=== PATIENT | male | born 1970 | race Caucasian/White ===

== ENCOUNTER 2018-11-17 10:46 | Emergency (ER) | payer MEDICARE, OTHER ==
[~2018-11-17] VITALS: Ht 160 cm; Wt 65.8 kg
[2018-11-17 11:14] VITALS: Ht 160 cm; Wt 65.8 kg
[2018-11-17] MEDS ORDERED: SODIUM CHLORIDE 0.9% 1L BAG IV* STA (12:04)
[2018-11-17] MEDS ORDERED: ONDANSETRON 4 MG INJ IV STA (12:04)
[2018-11-17] MEDS ORDERED: morphine 4 MG/ML VIAL IV STA (12:04)
[2018-11-17] MEDS ORDERED: ACETAMINOPHEN 325 MG TAB PO STA (12:04)
[2018-11-17] MEDS ORDERED: ASPI-817 PO (12:12)
[2018-11-17] MEDS ORDERED: ACET325T33 PO (13:19)
[2018-11-17] MEDS ORDERED: IBUP-1542 PO (13:19)
--- NOTE | 2018-11-17 13:46 | ERD ---
ER Documentation Chief Complaint Chief Complaint c/o moderate to severe headache and numbness on legs x2 days HPI Patient is a 48-year-old male with coronary disease and hypertension who presents with headache. The patient said that he started with headache on Thursday which is worsening. He tried aspirin. He had some blurry vision and bilateral feet numbness. He had a fever in triage. He said the last time he felt like this he had "MRSA in the head". Upon review of old medical records this is the patient's first visit to the emergency department. The patient's primary doctor is Dr. Lawson Whitehead. ROS All systems reviewed and are negative except as per history of present illness. Medications Home Meds Active Scripts Ibuprofen* (Motrin*) 600 Mg Tab, 600 MG PO Q6H PRN for PAIN AND OR ELEVATED TEMP, #30 TAB Prov:SUSIE WHITE MD 11/17/18 Acetaminophen* (Tylenol*) 325 Mg Tablet, 2 TAB PO Q8 PRN for PAIN AND OR ELEVATED TEMP, #20 TAB Prov:SUSIE WHITE MD 11/17/18 Reported Medications Aspirin* (Aspirin* EC) 81 Mg Tablet.dr, 81 MG PO DAILY, TAB 11/17/18 Allergies Allergies: Coded Allergies: No Known Allergy (Unverified , 11/17/18) PMhx/Soc History of Surgery: Yes (BACK SX) Anesthesia Reaction: No Hx Neurological Disorder: No Hx Respiratory Disorders: No Hx Cardiac Disorders: Yes (TIA) Hx Psychiatric Problems: No Hx Miscellaneous Medical Probl: Yes Hx Alcohol Use: No Hx Substance Use: No Hx Tobacco Use: Yes Smoking Status: Current every day smoker FmHx Family History: No diabetes Physical Exam Vitals Vital Signs Date Temp Pulse Resp B/P (MAP) Pulse Ox O2 O2 Flow FiO2 Time Delivery Rate 11/17/18 98.6 60 17 130/3 (45) 99 Room Air 14:09 11/17/18 100.1 12:50 11/17/18 Nasal 2 12:31 Cannula 11/17/18 100.4 81 16 138/69 99 11:14 (92) Physical Exam Const: No acute distress Head: Atraumatic Eyes: Normal Conjunctiva ENT: Normal External Ears, Nose and Mouth. Neck: Full range of motion. No meningismus. Able to touch chin to his chest Resp: Clear to auscultation bilaterally Cardio: Regular rate and rhythm, no murmurs Abd: Soft, non tender, non distended. Normal bowel sounds Skin: No petechiae or rashes Back: No midline or flank tenderness Ext: No cyanosis, or edema Neur: Awake and alert, cranial nerves II through XII intact, strength is 5 out of 5 in all 4 tremors, no slurred speech Psych: Normal Mood and Affect Result Diagram: 11/17/18 1242 11/17/18 1242 Results 24 hrs Laboratory Tests Test 11/17/18 12:42 11/17/18 12:44 White Blood Count 5.0 10^3/ul Red Blood Count 4.85 10^6/ul Hemoglobin 15.0 g/dl Hematocrit 44.2 % Mean Corpuscular Volume 91.1 fl Mean Corpuscular Hemoglobin 30.9 pg Mean Corpuscular Hemoglobin Concent 33.9 g/dl Red Cell Distribution Width 12.7 % Platelet Count 370 10^3/UL Mean Platelet Volume 9.0 fl Immature Granulocytes % 0.400 % Neutrophils % 64.7 % Lymphocytes % 23.5 % Monocytes % 9.4 % Eosinophils % 1.0 % Basophils % 1.0 % Nucleated Red Blood Cells % 0.0 /100WBC Immature Granulocytes # 0.020 10^3/ul Neutrophils # 3.3 10^3/ul Lymphocytes # 1.2 10^3/ul Monocytes # 0.5 10^3/ul Eosinophils # 0.1 10^3/ul Basophils # 0.1 10^3/ul Nucleated Red Blood Cells # 0.0 10^3/ul Prothrombin Time 12.3 Sec Prothrombin Time Ratio 1.0 INR International Normalized Ratio 0.90 Activated Partial Thromboplast Time 25.9 Sec Urine Color COLORLESS Urine Clarity CLEAR Urine pH 7.0 Urine Specific [place] 1.004 Urine Ketones NEGATIVE mg/dL Urine Nitrite NEGATIVE mg/dL Urine Bilirubin NEGATIVE mg/dL Urine Urobilinogen NEGATIVE mg/dL Urine Leukocyte Esterase NEGATIVE [facility]/ul Urine Hemoglobin NEGATIVE mg/dL Urine Glucose NEGATIVE mg/dL Urine Total Protein NEGATIVE mg/dl Sodium Level 142 mmol/L Potassium Level 4.0 mmol/L Chloride Level 106 mmol/L Carbon Dioxide Level 30 mmol/L Anion Gap 6 Blood Urea Nitrogen 17 mg/dl Creatinine 0.85 mg/dl Est Glomerular Filtrat Rate mL/min > 60 mL/min Glucose Level 104 mg/dl Calcium Level 9.6 mg/dl Total Bilirubin 0.5 mg/dl Direct Bilirubin 0.00 mg/dl Indirect Bilirubin 0.5 mg/dl Aspartate Amino Transf (AST/SGOT) 30 IU/L Alanine Aminotransferase (ALT/SGPT) 37 IU/L Alkaline Phosphatase 52 IU/L Troponin I < 0.012 ng/ml Total Protein 7.4 g/dl Albumin 4.5 g/dl Globulin 2.90 g/dl Albumin/Globulin Ratio 1.55 POC Venous Lactate 1.1 mmol/L Current Medications Medications Dose Sig/Idris Start Time Status Last (Trade) Ordered Route PRN Stop Time Admin Dose Reason Admin Sodium 1,970 ml BOLUS OVER 2 11/17/18 DC 11/17/18 Chloride HOURS STAT 12:04 12:50 (NS) IV* 11/17/18 12:07 650 mg ONCE STAT 11/17/18 DC 11/17/18 Acetaminophen PO 12:04 12:50 (Tylenol 11/17/18 12:07 Tab) Morphine 4 mg ONCE STAT 11/17/18 DC 11/17/18 Sulfate IV 12:04 12:50 (morphine) 11/17/18 12:07 Ondansetron 4 mg ONCE STAT 11/17/18 DC 11/17/18 HCl (Zofran IV 12:04 12:50 Inj) 11/17/18 12:07 Procedures/MDM EKG read by me: Rate/Rhythm: Regular rate and rhythm at a rate of 74 Intervals: Normal Impression: No evidence of ischemia or arrhythmia CT brain negative per radiology. Chest x-ray negative per radiology. Smoking Cessation Therapy: Pt. was lectured for greater than 3 minutes on the health risks of continued smoking and the benefits of cessation. Patient is a 48-year-old male with coronary disease and hypertension who presents with fever. I believe he likely has a viral illness at this time. I doubt serious bacterial infection such as meningitis or brain abscess. I doubt sepsis. I believe outpatient management is appropriate but the patient will need close follow-up with his primary doctor within 24 to 48 hours. He can return sooner for any worsening symptoms. He was given copies of laboratory studies and imaging test prior to discharge. Departure Diagnosis: Primary Impression: URI (upper respiratory infection) URI type: unspecified URI Qualified Codes: J06.9 - Acute upper respiratory infection, unspecified Additional Impressions: Fever Fever type: unspecified Qualified Codes: R50.9 - Fever, unspecified Headache Headache type: unspecified Headache chronicity pattern: acute headache Intractability: not intractable Qualified Codes: R51 - Headache Condition: Fair Patient Instructions: Self-Care for Headaches, Fever Control (Adult) Referrals: Dr. Lawson Whitehead your doctor Additional Instructions: Call your primary care doctor TOMORROW for an appointment during the next 1-2 days.See the doctor sooner or return here if your condition worsens before your appointment time. SUSIE WHITE MD November 17, 2018 13:46
[2018-11-17 14:09] VITALS: BP 130/3; PULSE 60; RESP 17
== END 2018-11-17 14:22 | disposition home or self-care (01) ==
LOC: E/R 10:46
DX: J06.9 Acute upper respiratory infection, unspecified (principal); R40.2142 Coma scale, eyes open, spontaneous, at arrival to emergency department; R40.2362 Coma scale, best motor response, obeys commands, at arrival to emergency department; R40.2252 Coma scale, best verbal response, oriented, at arrival to emergency department; I10 Essential (primary) hypertension; I25.10 Atherosclerotic heart disease of native coronary artery without angina pectoris; Z79.82 Long term (current) use of aspirin; Z86.73 Personal history of transient ischemic attack (TIA), and cerebral infarction without residual deficits
CPT/HCPCS: 36415; 70450; 71045; 80053; 81003; 83605; 84484; 85025; 85610; 85730; 87040; 87086; 93005; 96374; 96375; 99285; J2270; J2405; J7030